=== PATIENT | female | born 1985 | race Asian ===

== ENCOUNTER → 2023-12-14 07:24 | Outpatient (REF) | payer OTHER, SELFPAY ==
[2023-12-14 08:54] LABS: % Basophils 0.4 % (0-2); % Eosinophils 2.5 % (0-6); % Immature Granulocytes 0.2 % (0-0.5); % Lymphocytes 31.1 % (20.5-51.1); % Monocytes 5.2 % (1.7-9.3); % Neutrophils 60.6 % (42.2-75.2); Absolute Eosinophils 0.1 10^3/uL (0-0.7); Absolute Lymphocytes 1.5 10^3/uL (1.2-3.4); Absolute Monocytes 0.3 10^3/uL (0.1-0.6); Absolute Neutrophils 2.9 10^3/uL (1.4-6.5); Hematocrit 39.1 % (37.0-47.0); Hemoglobin 13.6 g/dL (12.0-16.0); Mean Corp Hgb Conc. 34.8 g/dL (33.0-37.0); Mean Corpuscular Hgb 29.5 pg (27.0-31.0); Mean Corpuscular Volume 84.8 fL (81.0-99.0); Mean Platelet Volume 8.6 fL (7.4-10.4); Nucleated Red Blood Cells % 0 %; Platelet Count 277 10^3/uL (130-400); Red Blood Cell Count 4.61 10^6/uL (4.20-5.40); Red Cell Dist. Width 12.3 % (11.5-14.5); White Blood Cell Count 4.8 10^3/uL (4.8-10.8)
[2023-12-14 09:35] LABS: ALT (SGPT) 83 U/L (0-35); AST (SGOT) 48 U/L (14-36); Albumin 4.7 g/dl (3.5-5.0); Alkaline Phosphatase 63 U/L (38-126); Blood Urea Nitrogen 11 mg/dl (7-17); Calcium 9.2 mg/dl (8.4-10.2); Carbon Dioxide 25 mmol/L (22-30); Chloride 104 mmol/L (98-107); Direct Bilirubin 0.5 mg/dl (0.0-0.4); Glucose 111 mg/dl (70-99); HDL Cholesterol 41 mg/dl; LDL Cholesterol, Calculated 110 mg/dl; Potassium 4.1 mmol/L (3.5-5.1); Sodium 137 mmol/L (135-145); Total Bilirubin 0.5 mg/dl (0.2-1.3); Total Cholesterol 181 mg/dl (50-199); Total Protein 7.6 g/dl (6.3-8.2); Triglyceride 154 mg/dl (10-149); Very Low Density Lipoprotein 30 mg/dl (0-30); eGFR > 60.00
[2023-12-15 00:01] LABS: IgA 225 mg/dl (70-400); IgG 1238 mg/dl (700-1600); IgM 129 mg/dl (40-230)
[2023-12-15 19:50] LABS: Hepatitis B Surface Antigen Negative (Negative)
[2023-12-15 20:08] LABS: Hepatitis B Surface Antibody Positive; Hepatitis C Antibody Negative (Negative)
[2023-12-16 03:30] LABS: F-Actin Antibody IgG 4 Units (0-19); Mitochondrial M2 Ab, IgG 4.8 Units (0.0-24.9)
[2023-12-16 08:36] LABS: ANA, IgG Reflex to HEp-2 None Detected (None Detected)
[2023-12-16 19:07] LABS: LKM-1 Ab (IgG) 1.3 U (0.0-24.9)
== END ==
LOC: HWLAB 07:24
PROVIDERS: ATTENDING PHYSICIAN Internal Medicine Gastroenterology; FAMILY PHYSICIAN Nurse Practitioner
DX: R74.8 Abnormal levels of other serum enzymes (principal); R94.5 Abnormal results of liver function studies; E78.2 Mixed hyperlipidemia; G43.009 Migraine without aura, not intractable, without status migrainosus; K76.0 Fatty (change of) liver, not elsewhere classified
CPT/HCPCS: 36415; 80053; 80061; 82248; 82784; 85025; 86015; 86038; 86376; 86381; 86706; 86803; 87340

== ENCOUNTER → 2024-01-26 09:59 | Outpatient (REF) | payer OTHER, SELFPAY | LOC: WDC 09:59 | PROVIDERS: ATTENDING PHYSICIAN Nurse Practitioner | DX: N64.4 Mastodynia (principal); N64.52 Nipple discharge | CPT/HCPCS: 76642; 77062; 77066 ==

== ENCOUNTER → 2024-02-22 15:49 | Outpatient (REF) | payer OTHER, SELFPAY | LOC: MRI 3T 15:49 | PROVIDERS: ATTENDING PHYSICIAN Nurse Practitioner | DX: N64.59 Other signs and symptoms in breast (principal) | CPT/HCPCS: 77049; A9585 ==

== ENCOUNTER → 2024-03-02 06:19 | Outpatient (REF) | payer OTHER, SELFPAY ==
--- NOTE | 2024-03-02 11:41 | OID.BR.INTR ---
[facility] Breast Navigator - Initial
- -
Date of Contact: 03/02/24
Met with patient. Patient given written information on navigator services and support services available at [facility]. Will follow up as needed per protocol.
== END ==
LOC: WDC 06:19
PROVIDERS: ATTENDING PHYSICIAN Surgery
DX: N63.20 Unspecified lump in the left breast, unspecified quadrant (principal)
CPT/HCPCS: 88305; 19083; 76642; 77065; 88341; 88342; 88360; A4648

== ENCOUNTER → 2024-03-29 08:18 | Outpatient (REF) | payer OTHER, SELFPAY | LOC: WDC 08:18 | PROVIDERS: ATTENDING PHYSICIAN Surgery; FAMILY PHYSICIAN Nurse Practitioner | DX: R92.8 Other abnormal and inconclusive findings on diagnostic imaging of breast (principal) | CPT/HCPCS: 76642 ==

== ENCOUNTER → 2024-04-30 11:36 | Outpatient (REF) | payer OTHER, SELFPAY ==
[2024-04-30 20:34] LABS: FSH 67.6 mIU/ml
[2024-04-30 20:50] LABS: Estradiol 17.2 pg/ml
== END ==
LOC: HWLAB 11:36
PROVIDERS: ATTENDING PHYSICIAN Obstetrics & Gynecology Gynecology; FAMILY PHYSICIAN Nurse Practitioner
DX: E28.319 Asymptomatic premature menopause (principal)
CPT/HCPCS: 36415; 82670; 83001; 83002

== ENCOUNTER → 2024-07-18 07:44 | Outpatient (REF) | payer OTHER, SELFPAY ==
[2024-07-18 10:12] LABS: ALT (SGPT) 128 U/L (0-35); AST (SGOT) 83 U/L (14-36); Albumin 5.2 g/dl (3.5-5.0); Alkaline Phosphatase 60 U/L (38-126); Direct Bilirubin 0.3 mg/dl (0.0-0.4); Total Bilirubin 0.5 mg/dl (0.2-1.3); Total Protein 8.2 g/dl (6.3-8.2)
== END ==
LOC: HWLAB 07:44
PROVIDERS: ATTENDING PHYSICIAN Nurse Practitioner; FAMILY PHYSICIAN Nurse Practitioner
DX: R74.8 Abnormal levels of other serum enzymes (principal)
CPT/HCPCS: 80076

== ENCOUNTER → 2024-12-06 16:23 | Outpatient (REF) | payer OTHER, SELFPAY | LOC: MRI 3T 16:23 | PROVIDERS: ATTENDING PHYSICIAN Surgery; FAMILY PHYSICIAN Nurse Practitioner | DX: R92.8 Other abnormal and inconclusive findings on diagnostic imaging of breast (principal) | CPT/HCPCS: 77049; A9585 ==

== ENCOUNTER → 2025-07-18 13:39 | Outpatient (REF) | payer OTHER, SELFPAY | LOC: MRI 3T 13:39 | PROVIDERS: ATTENDING PHYSICIAN Surgery; FAMILY PHYSICIAN Nurse Practitioner | DX: R92.8 Other abnormal and inconclusive findings on diagnostic imaging of breast (principal) | CPT/HCPCS: 77049; A9585 ==

== ENCOUNTER → 2025-07-29 11:10 | Outpatient (REF) | payer OTHER, SELFPAY | LOC: HWWDC 11:10 | PROVIDERS: ATTENDING PHYSICIAN Obstetrics & Gynecology Gynecology; FAMILY PHYSICIAN Nurse Practitioner | DX: Z12.31 Encounter for screening mammogram for malignant neoplasm of breast (principal) | CPT/HCPCS: 77063; 77067 ==